=== PATIENT | male | born 1940 | race Caucasian/White ===

== ENCOUNTER → 2020-06-11 | Outpatient (CLI) | payer OTHER ==
[~2020-06-11] MED LIST: ATORVASTATIN CA80 MG PO; CLARITIN10 MG PO; COUMADIN 5 MG TA5 M1 PO; COZAAR 50 MG TA50 M1 PO; COZAAR 50 MG TA50 M2 PO; CRESTOR20 MG; FISH OIL 1,0001 EAC5 PO; FISHOIL; FLAXSEED OIL1000 MG PO; JANTOVEN7.5 MG PO; KEPPRA 500 MG500 M1 PO; LEVETIRACETAM1000 MG PO; LIPITOR40 MG PO; LOPRESSOR; LOPRESSOR 50 MG50 M1 PO; LOPRESSOR25 PO; METOPROLOL SUCC50 MG PO; MULTI-VITAMIN1 EAC5 PO; NIASPAN ER 101000 M1; ONE TOUCH ULTR1 EACH MC; PREDNISONE 20 M20 MG PO
== END ==
LOC: SJCVCIMAG 08:12
PROVIDERS: ATTEND Internal Medicine Cardiovascular Disease
DX: I25.10 Atherosclerotic heart disease of native coronary artery without angina pectoris (principal); R53.83 Other fatigue; I48.92 Unspecified atrial flutter; E78.2 Mixed hyperlipidemia; Z95.5 Presence of coronary angioplasty implant and graft; Z79.899 Other long term (current) drug therapy; Z87.891 Personal history of nicotine dependence

== ENCOUNTER → 2021-03-17 | Outpatient (CLI) | payer OTHER | LOC: SJCVC 11:02 | PROVIDERS: ATTEND Internal Medicine Cardiovascular Disease | DX: I25.10 Atherosclerotic heart disease of native coronary artery without angina pectoris (principal); E78.00 Pure hypercholesterolemia, unspecified; I48.0 Paroxysmal atrial fibrillation; E11.9 Type 2 diabetes mellitus without complications; I10 Essential (primary) hypertension; E78.5 Hyperlipidemia, unspecified; Z95.5 Presence of coronary angioplasty implant and graft; Z88.8 Allergy status to other drugs, medicaments and biological substances; Z79.01 Long term (current) use of anticoagulants; Z79.84 Long term (current) use of oral hypoglycemic drugs; Z79.899 Other long term (current) drug therapy; Z87.891 Personal history of nicotine dependence; Z82.49 Family history of ischemic heart disease and other diseases of the circulatory system ==